=== PATIENT | male | born 2000 | race Caucasian/White ===

== ENCOUNTER 2019-04-30 09:56 | Emergency (ER) | payer OTHER ==
[~2019-04-30] VITALS: Ht 193 cm; Wt 65.4 kg
[2019-04-30 10:08] VITALS: BP 115/45
--- NOTE | 2019-04-30 10:43 | PHYS DOC ---
Past History Past Medical History: No Pertinent History Past Surgical History: Other Additional Past Surgical Histo: Thirod Alcohol Use: None Adult General Chief Complaint Chief Complaint: FOOT INJURY PAIN HPI HPI 18-year-old male presents with right middle toe pain. The patient was running outside yesterday when he was not paying attention and kicked a concrete curb. He had immediate pain in his toe. It is now bruised, swollen and painful. He wants to know if it's broken. He denies any other injuries or complaints. Review of Systems Review of Systems Constitutional: Denies fever or chills [] Eyes: Denies change in visual acuity, redness, or eye pain [] HENT: Denies nasal congestion or sore throat [] Respiratory: Denies cough or shortness of breath [] Cardiovascular: No additional information not addressed in HPI [] GI: Denies abdominal pain, nausea, vomiting, bloody stools or diarrhea [] : Denies dysuria or hematuria [] Musculoskeletal: Right middle toe pain[] Integument: Denies rash or skin lesions [] Neurologic: Denies headache, focal weakness or sensory changes [] Endocrine: Denies polyuria or polydipsia [] All other systems were reviewed and found to be within normal limits, except as documented in this note. Allergies Allergies Allergies Coded Allergies Type Severity Reaction Last Updated Verified No Known Drug Allergies 04/30/19 No Physical Exam Physical Exam Constitutional: Well developed, well nourished, no acute distress, non-toxic appearance. [] HENT: Normocephalic, atraumatic, bilateral external ears normal, oropharynx moist, no oral exudates, nose normal. [] Eyes: PERRLA, EOMI, conjunctiva normal, no discharge. [] Neck: Normal range of motion, no tenderness, supple, no stridor. [] Cardiovascular: Heart rate regular rhythm, no murmur [] Lungs & Thorax: Bilateral breath sounds clear to auscultation [] Abdomen: Bowel sounds normal, soft, no tenderness, no masses, no pulsatile masses. [] Skin: Warm, dry, no erythema, no rash. [] Back: No tenderness, no CVA tenderness. [] Extremities: Right middle toe pain, ecchymosis, and swelling[] Neurologic: Alert and oriented X 3, normal motor function, normal sensory funct ion, no focal deficits noted. [] Psychologic: Affect normal, judgement normal, mood normal. [] Current Patient Data Vital Signs Vital Signs Date Time Temp Pulse Resp B/P (MAP) Pulse Ox O2 Delivery O2 Flow Rate FiO2 04/30/19 10:08 98.2 43 16 115/45 (68) 99 Room Air EKG EKG [] Radiology/Procedures Radiology/Procedures [] Impressions: EXAM: Right toes, 3 views. HISTORY: Blunt trauma. COMPARISON: None. FINDINGS: 3 views of the right toes are obtained. There is linear lucency at the base of the third middle phalanx. This is only seen on this single projection and may be developmental or a nondisplaced fracture. Correlate for pain in this location. IMPRESSION: Lucency at the base of the third middle phalanx, only seen on a single projection. Correlate for point tenderness in this location to exclude a nondisplaced fracture. Electronically signed by: Taylor Hunt MD (04/30/2019 10:45 AM) [id number] DICTATED AND SIGNED BY: TAYLOR HUNT MD DATE: 04/30/19 1045 CC: MAVERICK PICKETT DO; PCP,NO ~ Course & Med Decision Making Course & Med Decision Making Pertinent Labs and Imaging studies reviewed. (See chart for details) The patient's x-rays suggestive of a fracture that is nondisplaced. It is not conclusive. We will leah tape the toes. This should be sufficient treatment. He is stable for discharge at this time. He will use [id number]-dwe-[id number] pain medications for his pain. [] Dragon Disclaimer Dragon Disclaimer This electronic medical record was generated, in whole or in part, using a voice recognition dictation system. Departure Departure: Impression: Primary Impression: Fracture of toe of right foot Disposition: 01 HOME, SELF-CARE Condition: STABLE Referrals: PCP,NO (PCP) Patient Instructions: Toe Fracture with Rehab-SportsMed Problem Qualifiers Primary Impression: Fracture of toe of right foot Encounter type: initial encounter Toe: lesser toe Fracture type: closed Phalanx: proximal Fracture alignment: nondisplaced Qualified Codes: S92.514A - Nondisplaced fracture of proximal phalanx of right lesser toe(s), initial encounter for closed fracture MAVERICK PICKETT DO Apr 30, 2019 10:43
--- NOTE | 2019-04-30 10:48 | RAD ---
EXAM: Right toes, 3 views. HISTORY: Blunt trauma. COMPARISON: None. FINDINGS: 3 views of the right toes are obtained. There is linear lucency at the base of the third middle phalanx. This is only seen on this single projection and may be developmental or a nondisplaced fracture. Correlate for pain in this location. IMPRESSION: Lucency at the base of the third middle phalanx, only seen on a single projection. Correlate for point tenderness in this location to exclude a nondisplaced fracture. Electronically signed by: Taylor Hunt MD (04/30/2019 10:45 AM) [id number]
== END 2019-04-30 11:16 | disposition home or self-care (01) ==
LOC: ER 09:56
DX: S92.514A Nondisplaced fracture of proximal phalanx of right lesser toe(s), initial encounter for closed fracture (principal); W22.8XXA Striking against or struck by other objects, initial encounter; Y93.89 Activity, other specified; Y92.89 Other specified places as the place of occurrence of the external cause; Y99.8 Other external cause status
CPT/HCPCS: 73660; 99283

== ENCOUNTER 2019-08-12 20:40 | Emergency (ER) | payer OTHER ==
[~2019-08-12] VITALS: Ht 193 cm; Wt 62.0 kg
[2019-08-12] MEDS ORDERED: IBUPROFEN 600 MG TABLET. PO ONE (21:15)
[2019-08-12] MEDS ORDERED: DICL50TA4 PO (21:27)
--- NOTE | 2019-08-12 21:27 | PHYS DOC ---
Past History Past Medical History: No Pertinent History Past Surgical History: No Surgical History, Other Additional Past Surgical Histo: Thirod Alcohol Use: None General Adult EDM: Chief Complaint: ANKLE PROBLEM HPI: HPI: Patient is a 19-year-old male who presents with injury to his left ankle after he twisted his ankle while running approximately 45 minutes ago. Patient indicates that he noticed swelling within about a minute of the injury. He states that he has a lot of pain with weightbearing and has tried not to walk on it. He denies any other injuries. [] Review of Systems: Review of Systems: Constitutional: Denies fever or chills Respiratory: Denies cough or shortness of breath Cardiovascular: Denies chest pain or edema Musculoskeletal: Positive left ankle pain Integument: Denies rash Neurologic: Denies headache, focal weakness or sensory changes Heart Score: Risk Factors: Risk Factors: DM, Current or recent (<one month) smoker, HTN, HLP, family history of CAD, obesity. Risk Scores: Score 0 - 3: 2.5% MACE over next 6 weeks - Discharge Home Score 4 - 6: 20.3% MACE over next 6 weeks - Admit for Clinical Observation Score 7 - 10: 72.7% MACE over next 6 weeks - Early Invasive Strategies Current Medications: Current Meds: Current Medications Medications (Trade) Dose Ordered Sig/Moshe Start Time Stop Time Status Last Admin Dose Admin Ibuprofen (Motrin) 600 mg 1X ONCE 08/12/19 21:15 08/12/19 21:16 DC Allergies: Allergies: Allergies Coded Allergies Type Severity Reaction Last Updated Verified No Known Drug Allergies 04/30/19 No Physical Exam: PE: Constitutional: Well developed, well nourished, no acute distress, non-toxic appearance. [] Neck: Normal range of motion, no tenderness, supple, no stridor. [] Cardiovascular:Heart rate regular rhythm, no murmur [] Lungs & Thorax: Bilateral breath sounds clear to auscultation [] Extremities: Examination of left ankle demonstrates moderate soft tissue swelling around the lateral malleolus with diffuse tenderness laterally. [] Current Patient Data: Vital Signs: Vital Signs Date Time Temp Pulse Resp B/P (MAP) Pulse Ox O2 Delivery O2 Flow Rate FiO2 08/12/19 20:40 98.6 82 18 117/81 (93) 96 Room Air EKG: EKG: [] Radiology/Procedures: Radiology/Procedures: [] Impressions: PROCEDURE: ANKLE LEFT 3V ANKLE LEFT 3V DATE: 08/12/2019 8:53 PM INDICATION: Reason: twisted ankle, LATERAL PAIN SWELLING / Spl. Instructions: / History: COMPARISON: None. FINDINGS: Bones: There is no evidence of acute fracture or dislocation. Joints: The ankle mortise is congruent. Ankle joint effusion. No widening of the distal tibiofibular syndesmosis. Miscellaneous: Lateral soft tissue swelling. IMPRESSION: No acute fracture. Ankle joint effusion and lateral soft tissue swelling. Electronically signed by: Humberto Estrada MD (08/12/2019 9:31 PM) [id number] Course & Med Decision Making: Course & Med Decision Making Pertinent Labs and Imaging studies reviewed. (See chart for details) [] Dragon Disclaimer: Dragon Disclaimer: This electronic medical record was generated, in whole or in part, using a voice recognition dictation system. Departure Departure: Impression: Primary Impression: Left ankle sprain Qualified Codes: S93.402A - Sprain of unspecified ligament of left ankle, initial encounter Disposition: 01 HOME/RESIDENCE PRIOR TO ADM Condition: STABLE Referrals: PCP,UNKNOWN (PCP) Patient Instructions: Ankle Sprain Scripts Diclofenac Sodium (DICLOFENAC SODIUM) 50 Mg Tablet.dr 1 TAB PO BID PRN for PAIN, #20 TAB Prov: ANGÉLICA MCCLURE Jr. DO 08/12/19 Justification of Admission: Justification of Admission: Justification of Admission Dx: Comment: (Not applicable) ANGÉLICA MCCLURE Jr. DO Aug 12, 2019 21:27
--- NOTE | 2019-08-12 21:34 | RAD ---
ANKLE LEFT 3V DATE: 08/12/2019 8:53 PM INDICATION: Reason: twisted ankle, LATERAL PAIN SWELLING / Spl. Instructions: / History: COMPARISON: None. FINDINGS: Bones: There is no evidence of acute fracture or dislocation. Joints: The ankle mortise is congruent. Ankle joint effusion. No widening of the distal tibiofibular syndesmosis. Miscellaneous: Lateral soft tissue swelling. IMPRESSION: No acute fracture. Ankle joint effusion and lateral soft tissue swelling. Electronically signed by: Humberto Estrada MD (08/12/2019 9:31 PM) [id number]
[2019-08-12 21:40] VITALS: BP 115/70
== END 2019-08-12 21:40 | disposition home or self-care (01) ==
LOC: ER 20:40
DX: S93.402A Sprain of unspecified ligament of left ankle, initial encounter (principal); X50.9XXA Other and unspecified overexertion or strenuous movements or postures, initial encounter; Y93.02 Activity, running; Y92.89 Other specified places as the place of occurrence of the external cause; Y99.8 Other external cause status
CPT/HCPCS: 29515; 73610; 99283